=== PATIENT | male | born 1995 | race Caucasian/White ===

== ENCOUNTER → 2017-09-07 | Outpatient (CLI) | payer BC, OTHER | LOC: FIMAGING 11:13 | PROVIDERS: ATTEND Internal Medicine | DX: R10.9 Unspecified abdominal pain (principal); K58.9 Irritable bowel syndrome, unspecified; M51.27 Other intervertebral disc displacement, lumbosacral region; M51.26 Other intervertebral disc displacement, lumbar region ==

== ENCOUNTER 2017-09-14 18:44 | Emergency (ER) | payer BC ==
--- NOTE | 2017-09-14 19:34 | EDPHY ---
H & P Stated Complaint: abd pain endoscopy & colonoscopy yest. Time Seen by Provider: 09/14/17 19:15 HPI/ROS: CHIEF COMPLAINT: Abdominal pain HISTORY OF PRESENT ILLNESS: This is a 21-year-old male who has been undergoing an outpatient evaluation of abdominal pain that has been present on and off for the past year. It has been getting progressively worse. He has had plain films of his abdomen and also a CT scan (09/07/2017). Yesterday he underwent upper endoscopy and colonoscopy by Dr. Baron. He seemed to be doing okay yesterday but this afternoon around 2:00 p.m., 5 hr ago, he developed "severe" abdominal pain. This pain is similar to pain that he has experienced in the past. He tells me that he has had about 5 episodes like this over the last year , one within the past month. He describes it as a "clenching" sensation. He also reports abdominal bloating. He has not had vomiting or fever. His last bowel movement was Sunday, prior to his colonoscopy. He ate ice cream around 3:00 p.m. Today. He is taking Zoloft, Amitiza, Apriso, and budesonide. . REVIEW OF SYSTEMS: A ten point review of systems was performed and is negative with the exception of the items mentioned in the HPI. Past medical history: Abdominal pain as above Past surgical history: Noncontributory. Social history: He is relatively new to this area, having moved here from [place]. He does not drink excessive amounts of alcohol. General Appearance: Alert. Vital signs reviewed. Writhing on the bed. Heart rate 81, blood pressure 121/81. Afebrile. Eyes: Pupils equal and round, no conjunctival injection, no discharge. Anicteric. ENT, Mouth: Mucous membranes are moist, no oropharyngeal erythema or edema. Neck: No lymphadenopathy, supple. Respiratory: Lungs are clear to auscultation; no wheezes, rales, or rhonchi. Cardiovascular: Regular rate and rhythm; no murmur, rub, or gallop. Gastrointestinal: Abdomen with voluntary guarding, bowel sounds are present, diffusely tender, no masses or organomegaly, bowel sounds normal. Skin: Warm and dry, no rashes on exposed skin, normal color. Back: Nontender to palpation over the thoracolumbar spine. No CVAT. Extremities: No lower extremity edema, no calf tenderness or swelling. Neurological: Alert and oriented. Moving all four extremities easily and equally. Psychiatric: Normal affect. - Personal History Current Tetanus/Diphtheria Vaccine: Unsure Current Tetanus Diphtheria and Acellular Pertussis (TDAP): Unsure - Medical/Surgical History Hx Asthma: No Hx Chronic Respiratory Disease: No Hx Diabetes: No Hx Cardiac Disease: No Hx Renal Disease: No Hx Cirrhosis: No Hx Alcoholism: No Hx HIV/AIDS: No Hx Splenectomy or Spleen Trauma: No Other PMH: abd pain - Social History Smoking Status: Never smoked Constitutional: Initial Vital Signs Temperature (C) 36.5 C 09/14/17 19:09 Heart Rate 81 09/14/17 19:09 Respiratory Rate 16 09/14/17 19:09 Blood Pressure 121/81 H 09/14/17 19:09 O2 Sat (%) 93 09/14/17 19:09 O2 Delivery Mode Room Air Allergies/Adverse Reactions: No Known Allergies Allergy (Unverified 09/14/17 19:12) Medical Decision Making ED Course/Re-evaluation: Acute on chronic abdominal pain following colonoscopy yesterday. He declined pain medication. CT of abdomen/pelvis reported to me as showing no evidence of perforation, but significant constipation (more stool than seen in recent CT). The constipation is somewhat surprising, as he has been moving his bowels regularly and just underwent a bowel prep for colonoscopy yesterday. It seems that his colonoscopy is diagnositic for inflammatory bowel disease. He has been started on medication. I spoke with the rn care transition popped corn oven attendant , , who recommends adding Miralax and increasing his Amitiza to BID. Patient was serially examined. He continued with abdominal pain, declined pain medication. No perforation, no signs of infection. He is comfortable returning home with above treatments. He will see Dr. Baron this coming week. His pain improved while he was in the department, but did not resolve entirely. He does not have a surgical abdomen. - Data Points Laboratory Results: Laboratory Results 09/14/17 19:26 09/14/17 19:26 Departure - Departure Disposition: Home, Routine, Self-Care Clinical Impression: Abdominal pain Qualifiers: Abdominal location: generalized Qualified Code(s): R10.84 - Generalized abdominal pain Constipation Qualifiers: Constipation type: unspecified constipation type Qualified Code(s): K59.00 - Constipation, unspecified Condition: Good Instructions: Constipation (ED), Chronic Abdominal Pain (ED) Additional Instructions: Continue with your medications as prescribed by Dr. Baron. Add Miralax to your daily medications. You continue to look constipated on your CT scan. There is no evidence of bowel perforation on the abdominal scan. Call Dr. Baron's office on Sunday to schedule an appointment for next week. He is aware of [facility]'s emergency department visit. Referrals: Ahmet Baron MD [Medical Doctor] - As per Instructions
[2017-09-14 20:05] LABS: PLATELET COUNT 235 10^3/uL (150-400)
[2017-09-14 21:18] VITALS: BP 122/78
== END 2017-09-14 21:18 | disposition home or self-care (01) ==
DX: K59.00 Constipation, unspecified (principal)

== ENCOUNTER → 2017-10-01 | Outpatient (CLI) | payer BC ==
[~2017-10-01] MED LIST: GADOBUTROL 10 ML VIAL IVP ONE; GLUCAGON HCL 0.3 MG in SYRINGE 0.3 ML IVP ONE
== END ==
LOC: FIMAGING 12:14
PROVIDERS: ATTEND Internal Medicine Gastroenterology
DX: K59.00 Constipation, unspecified (principal); R10.9 Unspecified abdominal pain
CPT/HCPCS: A9585; J1610